=== PATIENT | female | born 1965 | race Caucasian/White ===

== ENCOUNTER 2023-02-19 14:46 | Outpatient (AMB) | payer OTHER, SELFPAY ==
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
[2023-02-19 15:24] VITALS: BP 118/72; PULSE 57; O2SAT 95; BMI 29.1
== END 2023-02-19 16:07 | disposition home or self-care (01) ==
PROVIDERS: PCP Internal Medicine; Visit Provider Nurse Practitioner Family
DX: R74.8 Abnormal levels of other serum enzymes (principal); R25.2 Cramp and spasm; M54.31 Sciatica, right side; G47.33 Obstructive sleep apnea (adult) (pediatric)
CPT/HCPCS: 99204

== ENCOUNTER → 2023-02-19 14:46 | Outpatient (BNVA) | payer OTHER, SELFPAY | PROVIDERS: PCP Internal Medicine; Visit Provider Nurse Practitioner Family ==

== ENCOUNTER 2023-04-04 14:19 | Outpatient (REF) | payer OTHER, SELFPAY ==
--- NOTE | 2023-04-04 14:22 | EMG_ITS ---
Chief complaint: LLE thigh spasm/pain and RLE sciatica Reason for referral: assess for myopathic or radicular process Referred by: Bibi Acevedo NP Procedure done: Bilateral lower extremity Precautions and/or limitations: None The limb temperature was monitored continuously and remained between 32-36 degrees C during the performance of the NCS. Nerve Conduction Studies Anti Sensory Summary Table ?Stim Site NR Onset (ms) Norm Onset (ms) Peak (ms) Norm Peak (ms) O-P Amp (?V) Norm O-P Amp Site1 Site2 Delta-0 (ms) Dist (cm) Albin (m/s) Norm Albin (m/s) Left Sural Anti Sensory (Lat Mall) Calf ? 2.6 3.3 <4.0 6.3 >5.0 Calf Lat Mall 2.6 14.0 54 Right Sural Anti Sensory (Lat Mall) Calf ? 2.8 3.4 <4.0 11.9 >5.0 Calf Lat Mall 2.8 14.0 50 Motor Summary Table ?Stim Site NR Onset (ms) Norm Onset (ms) O-P Amp (mV) Norm O-P Amp iAmp (mV) Amp (1st) (%) Site1 Site2 Delta-0 (ms) Dist (cm) Albin (m/s) Norm Albin (m/s) Right Peroneal Motor (Ext Dig Brev) Ankle ? 3.3 <4.0 6.0 >2.5 6.9 100.0 Ankle Ext Dig Brev 3.3 0.0 B Fib ? 9.1 6.1 7.3 101.7 B Fib Ankle 5.8 30.0 52 >40 Poplt ? 10.0 5.3 6.3 88.3 Poplt B Fib 0.9 5.0 56 >40 Left Tibial Motor (Abd Shafer Brev) Ankle ? 3.3 <5 6.9 >2.5 8.9 100.0 Ankle Abd Shafer Brev 3.3 0.0 Knee ? 9.9 5.8 7.7 84.1 Knee Ankle 6.6 34.0 52 >40 Right Tibial Motor (Abd Shafer Brev) Ankle ? 3.0 <5 13.8 >2.5 18.8 100.0 Ankle Abd Shafer Brev 3.0 0.0 Knee ? 10.4 7.7 10.3 55.8 Knee Ankle 7.4 34.0 46 >40 EMG ?Side Muscle Nerve Root Ins Act Fibs Psw Amp Dur Poly Recrt Int Pat Comment Left VastusMed Femoral L2-4 Nml Nml Nml Nml Nml 0 Nml Complete Left Add Nico Obturator, Sciat L2-4 Nml Nml Nml Nml Nml 0 Nml Complete Right AbdHallucis MedPlantar S1-2 Nml Nml Nml Nml Nml 0 Nml Complete Right AntTibialis Dp Br Peron L4-5 Nml Nml Nml Nml Nml 0 Nml Complete Right MedGastroc Tibial S1-2 Nml Nml Nml Nml Nml 0 Nml Complete Right VastusMed Femoral L2-4 Nml Nml Nml Nml Nml 0 Nml Complete Left AbdHallucis MedPlantar S1-2 Nml Nml Nml Nml Nml 0 Nml Complete Left AntTibialis Dp Br Peron L4-5 Nml Nml Nml Nml Nml 0 Nml Complete Left MedGastroc Tibial S1-2 Nml Nml Nml Nml Nml 0 Nml Complete Right Add Nico Obturator, Sciat L2-4 Nml Nml Nml Nml Nml 0 Nml Complete Paraspinal EMG ?Side Muscle Nerve Root Ins Act Fibs Psw Comment Right Lumbar Upper Rami Nml Nml Nml Right Lumbar Mid Rami Nml Nml Nml Right Lumbar Lower Rami Nml Nml Nml Left Lumbar Upper Rami Nml Nml Nml Left Lumbar Mid Rami Nml Nml Nml Left Lumbar Lower Rami Nml Nml Nml FINDINGS: All motor and sensory nerves tested showed normal latencies, amplitudes and conduction velocities. All other nerves tested were within normal. Concentric needle EMG was performed in selected muscles of the bilateral lower extremity and lumbar paraspinals. Study did not reveal signs of electric abnormalities as shown in the table below. No myopathic looking units seen. IMPRESSION: 1. This is a normal study. 2. There is no electrodiagnostic evidence for peroneal neuropathy, tibial neuropathy, lumbosacral plexopathy, lumbar radiculopathy, or peripheral neuropathy. 3. No myopathy seen. Thank you for your kind referral. Cait Vásquez MD, MAEVE Board Certified, [place] [employer] and [employer] (ABPMR) Board Certified, [place] Board [employer] Electro[employer]ostic [employer] (ABEM) CODIN 68003 x 2 MTDD
== END 2023-04-04 14:20 | disposition home or self-care (01) ==
LOC: HO.NEURO 14:19
PROVIDERS: Visit Provider Nurse Practitioner Family
DX: R25.2 Cramp and spasm (principal); M54.31 Sciatica, right side; R74.8 Abnormal levels of other serum enzymes
CPT/HCPCS: 95886; 95909

== ENCOUNTER → 2023-04-04 14:22 | Outpatient (BNV) | payer OTHER, SELFPAY | PROVIDERS: Visit Provider Physical Medicine & Rehabilitation | DX: M62.838 Other muscle spasm (principal); M79.605 Pain in left leg; M54.31 Sciatica, right side | CPT/HCPCS: 95886; 95909 ==

== ENCOUNTER 2023-09-21 07:59 | Outpatient (AMB) | payer OTHER, SELFPAY ==
[2023-09-21 08:00] VITALS: BP 124/72; PULSE 50; O2SAT 98; BMI 28.7
--- NOTE | 2023-09-21 08:00 | A.OFFVIS_ITS ---
Vital Signs 09/21/23 08:00 Height 5 ft 3 in Weight 162 lb BMI 28.7 BP 124/72 Blood Pressure Location Rt brachial Position Sitting Pulse 50 Pulse Source Pulse Oximeter Pulse Oximetry (%) 98 Oxygen Delivery Method Room Air Intake Visit Reasons: Follow up-LVM Intake Note: Patient presents for follow up visit. Patient still having the leg pain Allergies No Known Allergies Allergy (Verified 09/21/23 08:02) Medication List - Last Reconciled 09/21/23 by MARY Mcmahan calcium carbonate-vitamin D3 600 mg-5 mcg (200 unit) 1 tab PO BID cholecalciferol (vitamin D3) 10 mcg PO DAILY diclofenac sodium 1% topical DAILY levothyroxine 100 mcg PO DAILY omeprazole 20 mg PO DAILY HPI Comments Details: 58-yr-old female presents for f/u visit. Pt denies any significant interval medical changes. Pt notes however that she was recently told her HR is running lower than her baseline. Today, her HR is 50 w/ RRR. She denies SOB, dizziness, lightheadedness. Pt continues to have LLE spasms, however capsaicin cream helps. BLE EMG/NCS was normal. Labs, Mar 2023- CBC and CMP- WNL; CK 680 Per pt, she has had f/u CK in August- . She is using her APAP machine nightly. States she cannot sleep well w/o it. Notes that the recent tube she rec'd does not connect as securely w/ her mask, so may slip off more at night. She called her resp supplier- and they did not know why this was happening. Pt states it was a different tube- the new one is great while the old one was white. Her machine is no longer transmitting compliance data. [facility] Medical History (Updated 09/21/23 @ 08:32 by MARY Mcmahan) Vitamin D deficiency HLD (hyperlipidemia) Acquired hypothyroidism History of right breast cancer Surgical History H/O breast reconstruction H/O mastectomy Hx of tonsillectomy Family History Father Diabetes Mother Diabetes Anemia HTN (hypertension) Hyperlipidemia Sister Diabetes Kidney disease High potassium Social History (Reviewed 05/17/24 @ 08:03 by Maya Pineda [facility] Alcohol intake: current Patient Tobacco Use Status: Never used Tobacco Physical Exam Vital Signs: Last Vital Signs Pulse 50 09/21/23 08:00 BP 124/72 09/21/23 08:00 Pulse Ox 98 09/21/23 08:00 Oxygen Delivery Method Room Air 09/21/23 08:00 BMI result Body Mass Index 28.7 Const General: cooperative and no acute distress Orientation/consciousness: patient oriented x3 Resp Effort & Inspection: normal respiratory effort and able to speak in complete sentences Neuro General: patient oriented x3 Cranial nerves: Yes CN's II-XII intact bilaterally Cognition (Neuro): normal cognition Psych Appearance: grossly normal Mental Status: mental status grossly normal Speech and movement: Normal speech and movement present Affect: normal affect Attitude: cooperative Assessment & Plan Assessment & Plan (1) DANIELE (obstructive sleep apnea): Code(s): G47.33 - Obstructive sleep apnea (adult) (pediatric) Category: Medical (2) Bradycardia: Code(s): R00.1 - Bradycardia, unspecified Category: Medical (3) Leg cramps: Code(s): R25.2 - Cramp and spasm Category: Medical Plan Continue APAP 10-16 cmH2O nightly > 4 hrs, as pt is having good clinical effect from use. Will request SD card be sent to pt- to obtain update compliance data.ta. ? For LLE thigh spasm/pain and RLE sciatica s/s: Reviewed labs- elevated CK- now normalized per pt, WNL CBC and CMP. Will request recent labs from PCP. Reviewed BLE EMG/NCS- normal- no evidence for myopathic or radicular process. For bradycardia- Will check EKG and 72 hr Holter. ? f/u in 6 months or sooner prn. Orders: Orders ECG 12 lead EKG Today R00.1 - Bradycardia, unspecified ECG 3 day holter monitor Today R00.1 - Bradycardia, unspecified Coding Level of Care Code Est Pt Level 4 (74032) Diagnoses DANIELE (obstructive sleep apnea) G47.33 Bradycardia R00.1 Leg cramps R25.2
== END 2023-09-21 08:39 | disposition home or self-care (01) ==
PROVIDERS: PCP Internal Medicine; Visit Provider Nurse Practitioner Family
DX: G47.33 Obstructive sleep apnea (adult) (pediatric) (principal); R00.1 Bradycardia, unspecified; R25.2 Cramp and spasm
CPT/HCPCS: 99214

== ENCOUNTER → 2023-09-21 07:59 | Outpatient (BNVA) | payer OTHER, SELFPAY | PROVIDERS: PCP Internal Medicine; Visit Provider Nurse Practitioner Family ==

== ENCOUNTER → 2023-10-09 07:18 | Outpatient (REF) | payer OTHER, SELFPAY ==
--- NOTE | 2023-10-09 07:27 | HM_ITS ---
Conclusion: 1. Patient was monitored for total period of 2 days and 23 hours 2. Baseline was normal sinus rhythm with average heart rate of 64 beats per minute 3. No significant pauses or arrhythmias noted 4. No patient reported events MTDD
== END ==
LOC: HO.CARD 07:18
PROVIDERS: PCP Internal Medicine; Visit Provider Nurse Practitioner Family
DX: R00.1 Bradycardia, unspecified (principal)
CPT/HCPCS: 93242

== ENCOUNTER → 2023-10-09 07:27 | Outpatient (BNV) | payer OTHER, SELFPAY | PROVIDERS: PCP Internal Medicine; Visit Provider Internal Medicine Cardiovascular Disease | DX: R00.1 Bradycardia, unspecified (principal) | CPT/HCPCS: 93244 ==

== ENCOUNTER 2024-09-16 09:22 | Outpatient (AMB) | payer OTHER, SELFPAY ==
--- NOTE | 2024-09-16 09:26 | A.OFFVIS_ITS ---
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 Pt denies any significant interval medical changes. Patient's heart rate today is 65, patient denies any interval symptoms of bradycardia. She denies SOB, dizziness, lightheadedness. 10/11/2023, 48 hour Holter monitor: Conclusion: 1. Patient was monitored for total period of 2 days and 23 hours 2. Baseline was normal sinus rhythm with average heart rate of 64 beats per minute 3. No significant pauses or arrhythmias noted 4. No patient reported events Pt reports she is occasionally having the episodes of LLE spasms- has a sensation that the spasms will come every few weeks but resolves w/ application of the prn capscain cream. Her last full episode was in June where it took her whole leg, unfortunately the capsaicin cream does not help as much, wrapping a warm towel over the leg, and doing breathing exercises does help. BLE EMG/NCS was normal. She is using her APAP machine nightly. Reports she can not sleep without her APAP machine. She reports she is having good daytime energy with APAP use. Her machine is no longer transmitting compliance data. [facility] Medical History (Updated 09/21/23 @ 08:32 by MARY Mcmahan) Vitamin D deficiency HLD (hyperlipidemia) Acquired hypothyroidism History of right breast cancer Surgical History H/O breast reconstruction H/O mastectomy Hx of tonsillectomy Family History Father Diabetes Mother Diabetes Anemia HTN (hypertension) Hyperlipidemia Sister Diabetes Kidney disease High potassium Social History Alcohol intake: current Patient Tobacco Use Status: Never used Tobacco Physical Exam Vital Signs: Last Vital Signs Pulse 65 09/16/24 09:27 BP 124/68 05/13/25 09:27 Pulse Ox 96 09/16/24 09:27 Oxygen Delivery Method Room Air 09/16/24 09:27 BMI result Body Mass Index 29.2 Const General: cooperative and no acute distress Orientation/consciousness: patient oriented x3 Resp Effort & Inspection: normal respiratory effort and able to speak in complete sentences Neuro General: patient oriented x3 Cranial nerves: Yes CN's II-XII intact bilaterally Cognition (Neuro): normal cognition Psych Appearance: grossly normal Mental Status: mental status grossly normal Speech and movement: Normal speech and movement present Affect: normal affect Attitude: cooperative Assessment & Plan Assessment & Plan (1) DANIELE (obstructive sleep apnea): Code(s): G47.33 - Obstructive sleep apnea (adult) (pediatric) Category: Medical (2) Bradycardia: Code(s): R00.1 - Bradycardia, unspecified Category: Medical (3) Leg cramps: Code(s): R25.2 - Cramp and spasm Category: Medical Plan Continue APAP 10-16 cmH2O nightly > 4 hrs, as pt is having good clinical effect from use. Will request PAP compliance report from [facility], patient reports she recently sent in her updated SD card. We will request new PAP machine with remote monitoring capabilities. ? For LLE thigh spasm/pain and RLE sciatica s/s: May continue as needed topical capsaicin treatment. May continue as needed topical warm compresses- advised to monitor skin during application drip prevent burn injury. Previous BLE EMG/NCS- normal- no evidence for myopathic or radicular process. For bradycardia- Patient is asymptomatic. Holter monitor results showed normal sinus rhythm with average heart rate 64 beats per minute. Continue to monitor ? Will follow-up upon review of above and patient to follow-up in clinic in 12 months or sooner prn. Coding Level of Care Code Est Pt Level 4 (43063) Diagnoses DANIELE (obstructive sleep apnea) G47.33 Bradycardia R00.1 Leg cramps R25.2
[2024-09-16 09:27] VITALS: BP 124/68; PULSE 65; O2SAT 96; BMI 29.2
== END 2024-09-16 10:02 | disposition home or self-care (01) ==
LOC: HO.HSMS 09:23
PROVIDERS: PCP Internal Medicine; Visit Provider Nurse Practitioner Family
DX: G47.33 Obstructive sleep apnea (adult) (pediatric) (principal); R00.1 Bradycardia, unspecified; R25.2 Cramp and spasm
CPT/HCPCS: 99214